=== PATIENT | male | born 1955 | race Caucasian/White ===

== ENCOUNTER → 2017-11-24 | Outpatient (CLI) | payer OTHER ==
[~2017-11-24] MED LIST: ALBU6.7H IH; ASPI-1197 PO; BUDE10.2 IH; HYDR25TA PO
== END | disposition home or self-care (01) ==
LOC: SHCH 12:43
PROVIDERS: ATTEND Internal Medicine Cardiovascular Disease
DX: I25.10 Atherosclerotic heart disease of native coronary artery without angina pectoris (principal); I73.9 Peripheral vascular disease, unspecified
CPT/HCPCS: 93925

== ENCOUNTER → 2017-12-15 | Outpatient (CLI) | payer OTHER ==
[~2017-12-15] MED LIST changes: +REGADENOSON 0.4 MG/5 ML PF SYG IVP SCH
== END | disposition home or self-care (01) ==
LOC: SHCH 08:05
PROVIDERS: ATTEND Internal Medicine Cardiovascular Disease
DX: I20.9 Angina pectoris, unspecified (principal); R06.02 Shortness of breath
CPT/HCPCS: 78452; 93017; 96374; A9500 ×2; J2785

== ENCOUNTER → 2018-03-18 | Outpatient (CLI) | payer OTHER ==
[~2018-03-18] MED LIST changes: -REGADENOSON 0.4 MG/5 ML PF SYG IVP SCH
== END | disposition home or self-care (01) ==
LOC: SHCH 12:46
PROVIDERS: ATTEND Internal Medicine Cardiovascular Disease
DX: I73.9 Peripheral vascular disease, unspecified (principal)
CPT/HCPCS: 93925

== ENCOUNTER → 2019-02-17 | Outpatient (CLI) | payer OTHER | END | disposition home or self-care (01) | LOC: SHCH 09:37 | PROVIDERS: ATTEND Internal Medicine Cardiovascular Disease | DX: I70.90 Unspecified atherosclerosis (principal); I87.2 Venous insufficiency (chronic) (peripheral); I73.9 Peripheral vascular disease, unspecified; I71.4 Abdominal aortic aneurysm, without rupture | CPT/HCPCS: 93925; 93970; 93978 ==

== ENCOUNTER → 2019-08-26 | Outpatient (CLI) | payer OTHER ==
[~2019-08-26] VITALS: Ht 182.9 cm; Wt 82.1 kg
[~2019-08-26] MED LIST changes: -ALBU6.7H IH; +ALBU6.7H9 IH; +REGADENOSON 0.4 MG/5 ML PF SYG IVP SCH
== END | disposition home or self-care (01) ==
LOC: SHCH 08:48
PROVIDERS: ATTEND Internal Medicine Cardiovascular Disease
DX: R06.02 Shortness of breath (principal)
CPT/HCPCS: 78452; 93017; 96374; A9500 ×2; J2785

== ENCOUNTER → 2019-09-23 | Outpatient (CLI) | payer OTHER ==
[~2019-09-23] MED LIST changes: -REGADENOSON 0.4 MG/5 ML PF SYG IVP SCH
== END | disposition home or self-care (01) ==
LOC: SHCH 10:00
PROVIDERS: ATTEND Internal Medicine Cardiovascular Disease
DX: I70.0 Atherosclerosis of aorta (principal); I70.208 Unspecified atherosclerosis of native arteries of extremities, other extremity; I70.8 Atherosclerosis of other arteries; Z87.891 Personal history of nicotine dependence; Z98.62 Peripheral vascular angioplasty status; Z98.890 Other specified postprocedural states
CPT/HCPCS: 93925; 93978

== ENCOUNTER 2019-10-22 10:32 | Observation (INO) | payer OTHER ==
[2019-10-20 12:11] LABS: APPEARANCE,URINE Clear (CLEAR); BILIRUBIN,URINE Negative (NEGATIVE); COLOR,URINE Yellow (YELLOW); GLUCOSE, URINE (UA) Negative (NEGATIVE); KETONES,URINE Negative (NEGATIVE); LEUKOCYTE ESTERASE ,URINE Negative (NEGATIVE); NITRATE,URINE Negative (NEGATIVE); OCCULT BLOOD,URINE Negative (NEGATIVE); PH,URINE 7.5 (5.0-8.0); PROTEIN,URINE Negative (NEGATIVE); UROBILINOGEN,URINE 0.2 mg/dL (0.2-1.0)
[2019-10-20 12:16] LABS: BASOPHILS % (AUTO) 0.3 % (0.0-5.0); EOSINOPHILS % (AUTO) 0.5 % (0.0-8.0); HEMATOCRIT 43.4 % (42-54); LYMPHOCYTES % (AUTO) 17.2 % (21.0-51.0); MEAN CORPUSCULAR HEMOGLOBIN 33.3 pg (27.0-33.0); MEAN CORPUSCULAR HGB CONC 34.4 g/dL (32.0-36.0); MONOCYTES % (AUTO) 9.5 % (3.0-13.0); NEUTROPHILS % (AUTO) 72.5 % (40.0-77.0); PLATELET COUNT (AUTO) 283 K/uL (130-400); RED BLOOD CELL COUNT(AUTO) 4.48 MIL/uL (4.50-6.20); RED CELL DISTRIBUTION WIDTH 12.6 % (11.0-15.5); WHITE BLOOD COUNT (AUTO) 8.1 K/uL (4.8-10.8)
[2019-10-20 12:17] VITALS: BP 132/80
[2019-10-20 12:27] LABS: INR 0.95 (0.85-1.15); PARTIAL THROMBOPLASTIN TIME 26.2 SEC (26.3-35.5)
[2019-10-20 12:28] LABS: CREATININE 0.6 mg/dL (0.5-1.5); POTASSIUM 4.1 mmol/L (3.5-5.1)
--- NOTE | 2019-10-20 12:45 | NUR ---
TRANSPORTATION PT STATES SPOKE TO DR. RIBERA AND PT IS TO BE ADMITTED AFTER PROCEDURE BECAUSE PT LIVES ALONE. CALLED AND SPOKE TO DR. BACILIO DIEGO'S ASST. STATES PER DR. RIBERA, PT WILL BE ADMITTED AFTER PROCEDURE.
--- NOTE | 2019-10-21 12:46 | NUR ---
Called Justin Sanon and notified him if na of 133 and cl of 95, no new orders, okay to proceed.
[~2019-10-22] VITALS: Ht 180.3 cm; Wt 81.5 kg
[2019-10-22] VITALS (9 sets, daily range): BP systolic 145–175; BP diastolic 80–95
[~2019-10-22 10:32] MED LIST changes: -ASPI-1197 PO; +ATOR40TA71 PO; +CETI10TA57 PO; +METH750T3 PO; +SILD100T PO; +SODIUM CHLORIDE 0.9% 500ML 500 ML IV SCH; +TIOT18CA3 IH; +TUMERIC CURCUMIN PO; +[UNRECOGNIZED DRUG - OTHER] PO
--- NOTE | 2019-10-22 11:10 | NUR ---
PATIENT ADMITTED PATIENT ARRIVED TO DAY PATIENT ACCOMPANIED BY SELF (NO FAMILY PRESENT). PATIENT AAOX3, RESPIRATIONS UNLABORED, VITAL SIGNS STABLE. DENIES ANY PAIN AT THIS TIME. PROCEDURE VERIFIED AND CONFIRMED WITH PATIENT. HOSPITAL ROUTINE EXPLAINED TO PATIENT AND PATIENT VERIFIED UNDERSTANDING. ALL QUESTIONS/CONCERNS ADDRESSED. SKIN TEAR TO RIGHT ANKLE, BANDAID APPLIED.
[2019-10-22] MEDS ORDERED: SODIUM CHLORIDE 0.9% 1000ML 1,000 ML IV ONE (11:43)
--- NOTE | 2019-10-22 16:10 | NUR ---
REPORT/HANDOFF REPORT GIVEN AT BEDSIDE TO LONA JAMES RN USING SBAR, ALL QUESTIONS ANSWERED. PATIENT WAITING TO BE TAKEN TO [facility] FOR PROCEDURE. SIDERAILS UP X2, BED IN LOWEST POSITION, CALL KEN IN REACH.
[2019-10-22] MEDS ORDERED: IODIXANOL 320 MG/ML 100 ML VIAL ONE (17:35)
[2019-10-22] MEDS ORDERED: NITROGLYCERIN 5 MG/ML 10 ML VIAL IV ONE (17:35)
[2019-10-22] MEDS ORDERED: LIDOCAINE HCL 2% 20ML ONE (17:35)
[2019-10-22] MEDS ORDERED: HEPARIN SODIUM 1000UNIT/ML 10ML VIAL ONE (17:35)
[2019-10-22] MEDS ORDERED: MIDAZOLAM HCL 1 MG/ML 2ML VIAL ONE ×4 (17:55→19:07)
[2019-10-22] MEDS ORDERED: FENTANYL CITRATE PF 50 MCG/1 ML 2ML VIAL ONE ×2 (17:55→19:07)
[2019-10-22] MEDS ORDERED: IOHEXOL-350 50ML VIAL IV ONE (19:06)
[2019-10-22] MEDS ORDERED: SODIUM CHLORIDE 0.9% 1000ML 1,000 ML IV SCH (19:16)
[2019-10-22] MEDS ORDERED: CLOPIDOGREL BISULFATE 300 MG TAB ONE (19:23)
[2019-10-22] MEDS ORDERED: ASPIRIN 325MG EC TAB 325 MG TABLET.DR PO ONE (19:23)
[2019-10-22] MEDS ORDERED: DEXTROSE 50%-WATER 50 ML DISP.SYRIN IV PRN (19:30)
[2019-10-22] MEDS ORDERED: ACETAMINOPHEN-CODEINE 300/30MG TAB PO PRN (19:30)
[2019-10-22] MEDS ORDERED: HYDRALAZINE HCL 20 MG/ML VIAL IV PRN (19:30)
[2019-10-22] MEDS ORDERED: GLUCAGON 1MG KIT 1 MG ML IM PRN (19:30)
[2019-10-22] MEDS ORDERED: NITROGLYCERIN 0.4 MG SL TAB SL PRN (19:30)
[2019-10-22] MEDS ORDERED: METOPROLOL TARTRATE 1 MG/ML 5ML VIAL IV PRN (19:30)
[2019-10-23 00:30] VITALS: BP 151/96
[2019-10-23 03:56] VITALS: BP 144/94
[2019-10-23 05:04] LABS: HEMATOCRIT 36.7 % (42-54); MEAN CORPUSCULAR HEMOGLOBIN 33.4 pg (27.0-33.0); MEAN CORPUSCULAR HGB CONC 34.8 g/dL (32.0-36.0); MEAN CORPUSCULAR VOLUME 96.1 fL (79-99); PLATELET COUNT (AUTO) 235 K/uL (130-400); RED BLOOD CELL COUNT(AUTO) 3.82 MIL/uL (4.50-6.20); RED CELL DISTRIBUTION WIDTH 12.4 % (11.0-15.5); WHITE BLOOD COUNT (AUTO) 6.5 K/uL (4.8-10.8)
[2019-10-23 05:35] LABS: CREATININE 0.8 mg/dL (0.5-1.5); POTASSIUM 3.8 mmol/L (3.5-5.1)
[2019-10-23 07:30] VITALS: BP 138/87
[2019-10-23] MEDS ORDERED: CLOPIDOGREL BISULFATE 75 MG TAB PO SCH (09:00)
[2019-10-23] MEDS ORDERED: CLOP75TA14 PO (10:50)
[2019-10-23] MEDS ORDERED: ASPI-1181 PO (10:50)
== END 2019-10-23 11:12 | disposition home or self-care (01) ==
LOC: DAH 10:32 → DAHIP 10:33 → DAH 10:33 → 2AH 19:50
PROVIDERS: ADMIT Internal Medicine Cardiovascular Disease; ATTEND Internal Medicine Cardiovascular Disease
DX: I73.9 Peripheral vascular disease, unspecified (principal); I10 Essential (primary) hypertension; E78.49 Other hyperlipidemia; Z82.49 Family history of ischemic heart disease and other diseases of the circulatory system; Z86.73 Personal history of transient ischemic attack (TIA), and cerebral infarction without residual deficits; Z95.5 Presence of coronary angioplasty implant and graft; Z79.899 Other long term (current) drug therapy
CPT/HCPCS: 36415 ×2; 37227; 75716; 75774; 80048 ×2; 81003; 85025; 85027; 85610; 85730; A4215; A4216; A4221; A4222; A4223 ×3; A4606; A4663; C1724; C1725; C1760; C1769 ×2; C1876; C1887; C1893; C1894 ×2; G0378 ×16; J1644 ×2; J2250 ×4; J3010 ×2; J3490 ×2; J7030 ×2; Q9967 ×2; 99156; 99157

== ENCOUNTER → 2020-01-26 | Outpatient (CLI) | payer OTHER ==
[~2020-01-26] MED LIST changes: +ASPI-1181 PO; +CLOP75TA14 PO; -SODIUM CHLORIDE 0.9% 500ML 500 ML IV SCH
== END | disposition home or self-care (01) ==
LOC: SHCH 11:11
PROVIDERS: ATTEND Internal Medicine Cardiovascular Disease
DX: I73.9 Peripheral vascular disease, unspecified (principal)
CPT/HCPCS: 93925

== ENCOUNTER → 2020-08-15 | Outpatient (CLI) | payer OTHER ==
[~2020-08-15] MED LIST changes: -ASPI-1181 PO; +ASPI-1443 PO
== END | disposition home or self-care (01) ==
LOC: SHCH 09:25
PROVIDERS: ATTEND Internal Medicine Cardiovascular Disease
DX: I73.9 Peripheral vascular disease, unspecified (principal)
CPT/HCPCS: 93925

== ENCOUNTER → 2021-08-23 | Outpatient (CLI) | payer OTHER ==
[~2021-08-23] MED LIST changes: +METH-812 PO; -METH750T3 PO
== END | disposition home or self-care (01) ==
LOC: SHCH 08:36
PROVIDERS: ATTEND Internal Medicine Cardiovascular Disease
DX: I73.9 Peripheral vascular disease, unspecified (principal); I71.4 Abdominal aortic aneurysm, without rupture; I70.0 Atherosclerosis of aorta
CPT/HCPCS: 93925; 93978

== ENCOUNTER → 2022-05-22 | Outpatient (CLI) | payer OTHER | END | disposition home or self-care (01) | LOC: SHCH 09:33 | PROVIDERS: ATTEND Internal Medicine Cardiovascular Disease | DX: I70.293 Other atherosclerosis of native arteries of extremities, bilateral legs (principal); I11.9 Hypertensive heart disease without heart failure; E78.5 Hyperlipidemia, unspecified | CPT/HCPCS: 93306; 93925 ==

== ENCOUNTER 2022-09-16 08:26 | Observation (INO) | payer OTHER ==
[2022-09-16] VITALS (18 sets, daily range): BP systolic 116–156; BP diastolic 65–82
[~2022-09-16 08:26] MED LIST changes: +ALBU6.7H14 IH; -ALBU6.7H9 IH; +ATOR10 PO; -ATOR40TA71 PO; -BUDE10.2 IH; -CLOP75TA14 PO; +MEDICAL THC PO; -METH-812 PO; +MONT-39 PO; +SERT-440 PO; -TUMERIC CURCUMIN PO; +VITAMIN D PO; +WIXELA IH; -[UNRECOGNIZED DRUG - OTHER] PO
[2022-09-16 09:30] LABS: BASOPHILS % (AUTO) 0.3 % (0.0-5.0); EOSINOPHILS % (AUTO) 1.8 % (0.0-8.0); HEMATOCRIT 41.5 % (42-54); LYMPHOCYTES % (AUTO) 22.9 % (21.0-51.0); MEAN CORPUSCULAR HEMOGLOBIN 32.3 pg (27.0-33.0); MEAN CORPUSCULAR HGB CONC 34.5 g/dL (32.0-36.0); MEAN CORPUSCULAR VOLUME 93.7 fL (79-99); MONOCYTES % (AUTO) 9.3 % (3.0-13.0); NEUTROPHILS % (AUTO) 65.3 % (40.0-77.0); PLATELET COUNT (AUTO) 302 K/uL (130-400); RED BLOOD CELL COUNT(AUTO) 4.43 MIL/uL (4.50-6.20); RED CELL DISTRIBUTION WIDTH 12.1 % (11.0-15.5); WHITE BLOOD COUNT (AUTO) 7.1 K/uL (4.8-10.8)
[2022-09-16 09:33] LABS: CREATININE 0.8 mg/dL (0.5-1.5); POTASSIUM 3.6 mmol/L (3.5-5.1)
[2022-09-16 09:36] LABS: APPEARANCE,URINE CLEAR (CLEAR); BILIRUBIN,URINE NEGATIVE (NEGATIVE); COLOR,URINE LIGHT-YELLOW (YELLOW); GLUCOSE, URINE (UA) NEGATIVE (NEGATIVE); KETONES,URINE NEGATIVE (NEGATIVE); LEUKOCYTE ESTERASE ,URINE NEGATIVE Leu/uL (NEGATIVE); NITRATE,URINE NEGATIVE (NEGATIVE); OCCULT BLOOD,URINE NEGATIVE (NEGATIVE); PROTEIN,URINE NEGATIVE (NEGATIVE); UROBILINOGEN,URINE 0.2 mg/dL (0.2-1.0)
[2022-09-16 09:46] LABS: INR 0.93 (0.85-1.15)
[2022-09-16 09:48] LABS: PARTIAL THROMBOPLASTIN TIME 28.6 SEC (26.3-35.5)
[2022-09-16 10:00] LABS: B-TYPE NATRIURETIC PEPTIDE < 5 pg/mL (0-100)
[2022-09-16] MEDS ORDERED: LIDOCAINE HCL 1% 20 ML VIAL ONE (11:21)
[2022-09-16] MEDS ORDERED: FENTANYL CITRATE PF 50 MCG/1 ML 2ML VIAL ONE ×3 (11:22→13:14)
[2022-09-16] MEDS ORDERED: MIDAZOLAM HCL 1 MG/ML 2ML VIAL ONE ×4 (11:22→13:13)
[2022-09-16] MEDS ORDERED: HEPARIN 10,000 UNIT/10ML (1,000 UNIT/ML) VIAL ONE ×2 (11:22→12:58)
[2022-09-16] MEDS ORDERED: NITROGLYCERIN 50MG VIAL ONE (11:22)
[2022-09-16] MEDS ORDERED: IODIXANOL 320 MG/ML 100 ML VIAL ONE (11:22)
[2022-09-16] MEDS ORDERED: HYDRALAZINE 20MG/ML VIAL ONE (13:16)
[2022-09-16] MEDS ORDERED: CLOPIDOGREL 300MG TAB ONE (13:23)
[2022-09-16] MEDS ORDERED: ACETAMINOPHEN WITH CODEINE 1 TAB TAB PO PRN ×2 (14:00)
[2022-09-16] MEDS ORDERED: GLUCAGON 1MG KIT 1 MG ML IM PRN (14:00)
[2022-09-16] MEDS ORDERED: DEXTROSE 50%-WATER 50 ML DISP.SYRIN IV PRN (14:00)
[2022-09-16] MEDS ORDERED: 0.9%NACL 1000ML 1,000 ML IV SCH (14:00)
[2022-09-16] MEDS ORDERED: IPRATROPIUM/ALBUTEROL SULFATE 3 ML SOLUTION IH PRN (16:30)
[2022-09-16] MEDS ORDERED: NON-FORMULARY MEDICATION 1 EACH (Sildenafil Citrate (Viagra) 100 MG) PO SCH (16:30)
[2022-09-16] MEDS ORDERED: ONDANSETRON 4MG INJ ONE (17:42)
[2022-09-16] MEDS: IPRATROPIUM 0.5 MG/2.5 ML INH IH SCH ×2 (18:00→23:02)
[2022-09-16] MEDS ORDERED: ONDANSETRON 4MG INJ IVP PRN (18:30)
[2022-09-16] MEDS ORDERED: MONTELUKAST SODIUM 10 MG TAB PO SCH (21:00)
[2022-09-16] MEDS ORDERED: ATORVASTATIN 20 MG TABLET PO SCH (21:00)
[2022-09-16] MEDS ORDERED: CETIRIZINE HCL 5 MG TABLET PO SCH (21:00)
[2022-09-16] MEDS ORDERED: SERTRALINE HCL 50 MG TABLET PO SCH (21:00)
[2022-09-16] MEDS: FLUTICASONE/VILANTEROL 1 EACH AER.POW.BA IH SCH (21:38)
[2022-09-17 00:38] VITALS: BP 125/68
[2022-09-17 01:38] VITALS: BP 114/63
[2022-09-17] MEDS ORDERED: DIPHENHYDRAMINE HCL 25 MG CAPSULE ONE (02:18)
[2022-09-17] MEDS ORDERED: DIPHENHYDRAMINE HCL 25 MG CAPSULE PO ONE (02:30)
[2022-09-17 02:38] VITALS: BP 123/63
[2022-09-17 03:24] VITALS: BP 119/67
[2022-09-17 03:52] LABS: BASOPHILS % (AUTO) 0.3 % (0.0-5.0); EOSINOPHILS % (AUTO) 1.1 % (0.0-8.0); HEMATOCRIT 37.3 % (42-54); LYMPHOCYTES % (AUTO) 21.3 % (21.0-51.0); MEAN CORPUSCULAR HEMOGLOBIN 32.7 pg (27.0-33.0); MEAN CORPUSCULAR HGB CONC 34.9 g/dL (32.0-36.0); MEAN CORPUSCULAR VOLUME 93.7 fL (79-99); MONOCYTES % (AUTO) 12.9 % (3.0-13.0); NEUTROPHILS % (AUTO) 63.7 % (40.0-77.0); PLATELET COUNT (AUTO) 252 K/uL (130-400); RED BLOOD CELL COUNT(AUTO) 3.98 MIL/uL (4.50-6.20); RED CELL DISTRIBUTION WIDTH 12.2 % (11.0-15.5); WHITE BLOOD COUNT (AUTO) 7.5 K/uL (4.8-10.8)
[2022-09-17 04:22] LABS: ALBUMIN 3.1 g/dL (3.5-5.0); CREATININE 0.8 mg/dL (0.5-1.5); MAGNESIUM 1.7 mg/dL (1.80-2.40); POTASSIUM 3.9 mmol/L (3.5-5.1); TOTAL PROTEIN, SERUM 5.9 g/dL (6.0-8.3)
[2022-09-17] MEDS: IPRATROPIUM 0.5 MG/2.5 ML INH IH SCH ×2 (06:18→11:09)
[2022-09-17 06:19] VITALS: BP 135/65
[2022-09-17] MEDS ORDERED: VITAMIN D PO SCH (09:00)
[2022-09-17] MEDS ORDERED: MEDICAL THC PO SCH (09:00)
[2022-09-17] MEDS ORDERED: CLOPIDOGREL 75MG TAB PO SCH (09:00)
[2022-09-17] MEDS ORDERED: ASPIRIN 81 MG EC TAB PO SCH (09:00)
[2022-09-17] MEDS ORDERED: PANTOPRAZOLE 40 MG TAB DR PO SCH (09:00)
[2022-09-17] MEDS ORDERED: HYDROCHLOROTHIAZIDE 25 MG TABLET PO SCH (09:00)
[2022-09-17] MEDS: FLUTICASONE/VILANTEROL 1 EACH AER.POW.BA IH SCH (09:20)
[2022-09-17] MEDS ORDERED: FLU VACC QS2022-23(6MOS UP)/PF 60 MCG/0.5 ML ML IM ONE (10:00)
[2022-09-17 12:00] VITALS: BP 135/67
== END 2022-09-17 15:00 | disposition home or self-care (01) ==
LOC: DAH 08:26 → DAHIP 08:27 → 4AH 20:53
PROVIDERS: ADMIT Internal Medicine; ATTEND Internal Medicine
DX: I73.9 Peripheral vascular disease, unspecified (principal); I10 Essential (primary) hypertension; I70.8 Atherosclerosis of other arteries; E78.5 Hyperlipidemia, unspecified; R07.89 Other chest pain; Z87.891 Personal history of nicotine dependence; Z79.899 Other long term (current) drug therapy; Z98.890 Other specified postprocedural states; Z79.82 Long term (current) use of aspirin; Z23 Encounter for immunization
CPT/HCPCS: 75716; 75774; 37225; 80048; 83880; 85025 ×2; 85610; 85730; 81003; 36415 ×2; 93005 ×2; 83735; 80053; 90471; 94640 ×2; 94664; C1769 ×3; C1894 ×2; C1893; C1724; C2623; G0378 ×25; G0379; J3010 ×2; J0360; J1644 ×2; J2250 ×3; J2405; J3490; Q9967; A4215; A4223 ×3; A4222; A4221; A4663; A4216; A4606; Q2035; Q0163; 99156; 99157

== ENCOUNTER → 2023-05-28 | Outpatient (CLI) | payer OTHER | END | disposition home or self-care (01) | LOC: SHCH 08:21 | PROVIDERS: ATTEND Internal Medicine Cardiovascular Disease | DX: I70.8 Atherosclerosis of other arteries (principal); I73.9 Peripheral vascular disease, unspecified; I71.40 Abdominal aortic aneurysm, without rupture, unspecified | CPT/HCPCS: 93925; 93978 ==